=== PATIENT | male | born 1985 | race Caucasian/White ===

== ENCOUNTER 2020-07-29 02:18 | Outpatient (CLI) | payer MEDICAID, SELFPAY ==
--- NOTE | 2020-07-29 08:46 | DI.RAD_ITS ---
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 TECHNIQUE: 2D digital imaging was performed. COMPARISON: No exams were available for comparison FINDINGS: There is no evidence of compression fracture or listhesis or pars defects. The disc spaces exhibit n ormal height although there is slight anterior osseous lipping at L3-4 level noted which may indicate an element of degenerative disc disease. There is perhaps mild narrowing of the L3-4 disc space. O ther disc spaces exhibit normal height. No facet arthropathy seen. Sacroiliac joints appear unremar kable. There is no scoliosis. Incidentally noted are 2 large calcifications on the left side which are possibly related to the left kidney and there are also smaller calcifications slightly lower down subjacent of the left transvers e process of L2. These possibly represent calculi in the upper left ureter. IMPRESSION: Mild evidence of degenerative disc disease at L3-4 level. No other osseous findings in the lumbosacr al spine. No facet arthropathy. Left-sided large and small calcifications as described above which are probably related to the left k idney, and correlation with any history of ureteral colic is recommended. This can be further studie d with CT scan. DATA REPOSITORY: RADIATION DOSE DELIVERED:
== END 2020-07-29 02:38 ==
PROVIDERS: PCP Nurse Practitioner; Visit Provider Family Medicine
DX: M47.816 Spondylosis without myelopathy or radiculopathy, lumbar region (principal); I73.00 Raynaud's syndrome without gangrene
CPT/HCPCS: 72110

== ENCOUNTER 2020-08-20 12:02 | Emergency (ER) | payer MEDICAID, SELFPAY ==
[2020-08-20 12:10] VITALS: BP 131/84; PULSE 58; TEMP 36.5; O2SAT 98
[2020-08-20 12:17] LABS: Bilirubin Negative (Negative); Blood Trace-intact (Negative); Clarity Clear (Clear); Glucose Negative (Negative); Ketones Negative (Negative); Leukocyte Esterase Negative (Negative); Nitrite Negative (Negative); Specific Gravity >= 1.030 (1.005-1.025); Urobilinogen 0.2 EU/dL (Up TO 0.2); pH 6.5 (5-8)
[2020-08-20 12:25] LABS: Bacteria Few HPF (Negative); Crystals Negative HPF (Negative); Epithelial Cells Negative HPF (Negative); Mucus Heavy (Negative); Other Cells Few Renal (Negative); WBC 0-2 HPF (0-5)
[2020-08-20 12:26] LABS: C & S Indicated? No; Casts Negative LPF (Negative)
--- NOTE | 2020-08-20 12:35 | W.ED.GENAD ---
Discharge Plan Disposition Patient Disposition: HOME Condition: Good Discharge Details Clinical Impression: Ureterolithiasis Primary Care Provider: Daina Morgan ED Provider: Alva Lopez Home Meds and New Rx's Prescriptions: No Action buprenorphine-naloxone [Suboxone] 12-3 mg Film 1 film BUCCAL Q24H RF: 0 Discharge Instructions Additional Instructions: Strain your urine Ibuprofen 600 mg every 8 hours as needed for pain Tylenol for pain 50 mg every 6 hours as needed for breakthrough pain Follow up with the provider referral below You will need to see a provider at [facility] for further intervention Please return earlier should you have new or worsening complaints including fever, chills, changes, or with any new or worsening complaints Referrals: Titus Carranza MD [MD NON-[facility] STAFF PHYSICIAN] - Medical Decision Making Patient appears well, he is in no acute distress No discomfort phone call with Dr. Benitez, urology for follow-up regarding CT scan with 1.8 mm stone at the ureteropelvic junction CT scan nurse report without images was reviewed of patient brought his CT from [facility] from 16 August I also compared his labs from his evaluation on 16 August which she also significantly pathology Urinalysis today does not show evidence of infection, 10-20 white blood cells, no nitrates, no white blood cells Patient is afebrile and nontoxic Patient with out evidence of cystitis or pyelonephritis clinically Discussion for gastritis but not completely ruled out, patient will resume his Pepcid at home Case discussed with Dr. Benitez, on-call urologist who is happy to follow on patient but given the size of his obstructive stone, he recommends dermis intervention Case discussed with [facility], Dr. Knapp, urology recommends outpatient follow-up with Dr. Carranza for further intervention Given the threshold return for new or worsening complaints Instructed to strain urine Discharged home in stable condition with stable vital Differential Diagnosis Differential Diagnosis: Ureterolithiasis, cystitis, pyelonephritis, gastritis Medical Records Medical records reviewed: Yes I reviewed the patient's medical records. HPI This 34-year-old male presents with report is intermittent abdominal discomfort. He was seen in [facility] on [address] scan that showed evidence of kidney stone. He was told to follow-up and actually went to schedule appointment today but they sent him here to the emergency room if they are unable to see him. He denies any current discomfort. He denies fever or chills. He denies nausea or vomiting. He denies any chest pain or shortness of breath. Actually had similar pain in the past and was told that he has gastritis. He did take his Suboxone today. He denies any urinary symptoms. Patient denies any current medications aside from Suboxone which she took today. Patient denies any additional complaints at this time. General Date/Time Provider Initiated Documentation: 08/20/20 12:05. Related Data Home Medications Medication Instructions Recorded Confirmed buprenorphine-naloxone [Suboxone] 1 film BUCCAL Q24H 08/20/20 08/20/20 Allergies Allergy/AdvReac Type Severity Reaction Status Date / Time penicillin G Allergy Intermediate Headache Unverified 08/20/20 12:19 morphine Allergy Unknown Unverified 08/20/20 12:19 General Stated Complaint: Abd Prob LEEROY: 3 Review of Systems Narrative: Review of systems negative x7 aside from indicated in HPI [facility] Surgical History (Updated 05/11/18 @ 14:35 by [facility] [place]) Arthroplasty of knee Arthroscopy, Shoulder Family History Mother No problems noted. Father No problems noted. Social History Smoking/Tobacco Use Status: Current every day Tobacco Type: cigarettes Tobacco: How many years used: 10 Smoking risk assessment performed?: Yes Alcohol Intake: never Drug use: Current Sobriety Substance use type: does not use Do you feel safe at home: Yes Do you feel safe in your relationship?: Yes Exam Const General: healthy appearing Chest Chest: normal inspection of the chest Resp Effort & Inspection: normal respiratory effort Auscultation: clear to auscultation bilaterally Cardio Rate: regular rate Rhythm: regular rhythm Other: Distal pulses intact GI Inspection: normal to inspection Other: No CVA tenderness, no ecchymosis, no abdominal bruit or pulsatile mass, no abdominal tenderness time of my evaluation No abdominal bruit or pulsatile mass Skin General skin exam: no rashes or lesions noted Neuro General: patient alert Course Vital Signs Vital signs: Vital Signs Temperature 36.5 C 08/20/20 12:10 Pulse 58 L 08/20/20 12:10 Blood Pressure 131/84 08/20/20 12:10 Pulse Oximetry 98 08/20/20 12:10 Temperature 36.5 C 08/20/20 12:10 Temperature Source Oral 08/20/20 12:10 Pulse 58 L 08/20/20 12:10 Respiratory Effort Non-Labored 08/20/20 12:17 Blood Pressure 131/84 08/20/20 12:10 Blood Pressure Position Sitting 08/20/20 12:10 Pulse Oximetry 98 08/20/20 12:10 Oxygen Delivery Method Room Air 08/20/20 12:10 Oxygen Flow Rate 0 08/20/20 12:10 Pain Level 2 08/20/20 12:10 Lab/Test Results Lab/Test Results: Laboratory Tests Range/Units 08/20/20 12:10 Urine Color (Yellow) Yellow Urine Clarity (Clear) Clear Urine pH (5-8) 6.5 Ur Specific Beasley (1.005-1.025) >= 1.030 H Urine Protein (Negative) mg/dL 100 H Urine Ketones (Negative) mg/dL Negative Urine Blood (Negative) Trace-intact H Urine Nitrite (Negative) Negative Urine Bilirubin (Negative) Negative Urine Urobilinogen (Up TO 0.2) EU/dL 0.2 Ur Leukocyte Esterase (Negative) Negative Urine RBC (0-2) HPF 10-20 H Urine WBC (0-5) HPF 0-2 Ur Epithelial Cells (Negative) HPF Negative Urine Crystals (Negative) HPF Negative Urine Bacteria (Negative) HPF Few Urine Casts (Negative) LPF Negative Urine Mucus (Negative) Heavy Urine Other (Negative) Few renal Ur Culture Indicated? No Urine Glucose (Negative) mg/dL Negative
[2020-08-20 12:54] LABS: HCT 47.8 % (40.0-50.0); HGB 16.3 g/dL (13.5-17.5); MCH 29.9 pg (27.0-33.0); MCHC 34.1 % (32.0-36.0); MCV 87.5 fL (80-95); MPV 9.5 fL (8.0-11.0); Platelet Count 204 10^3/uL (130-400); RBC 5.46 10^6/uL (4.36-5.78); RDW 12.7 % (11.8-14.1); RDW-SD 40.7 fL; WBC 5.62 10^3/uL (4.4-10.8)
[2020-08-20 13:10] LABS: ALT 30 U/L (16-63); AST 18 U/L (15-37); Albumin 4.8 g/dL (3.4-5.0); Alkaline Phosphatase 83 U/L (46-116); Anion Gap 6.3 mmol/L (3-11); BUN 14 mg/dL (7-18); Bilirubin, Total 0.7 mg/dL (0.2-1.0); CO2 28.7 mmol/L (21.0-32.0); Calcium 9.8 mg/dL (8.5-10.1); Chloride 103 mmol/L (98-107); Glucose 97 mg/dL (74-106); Lipase 228 U/L (73-393); Sodium 138 mmol/L (136-145); Total Protein 8.6 g/dL (6.4-8.2)
--- NOTE | 2020-08-20 14:07 | NUR.NOTE ---
REFERRAL TO CARE MANAGEMENT TO GET APPT AT [facility].Nursing Note:
--- NOTE | 2020-08-26 14:25 | NUR.NOTE ---
Nursing Note: Patient called stating referral [place] [facility] had not been [place] so he was unable to get an appt. I faxed the provider note and labs to [facility] today. Tiffanie Burns [facility] fax [phone]
== END 2020-08-20 14:12 | disposition home or self-care (01) ==
PROVIDERS: Emergency Provider Physician Assistant; PCP Nurse Practitioner
DX: N20.1 Calculus of ureter (principal)
CPT/HCPCS: 36415; 80053; 83690; 85027; 99283; 81003; 81015